=== PATIENT | female | born 1945 | race Hispanic/Latino ===

== ENCOUNTER 2016-08-16 08:07 | Outpatient (CLI) | payer MEDICARE ==
--- NOTE | 2016-08-16 13:48 | Mammography Report ---
BILATERAL DIGITAL SCREENING MAMMOGRAM with CAD : 08/16/16 08:07:00 CLINICAL: Routine screening.Previous benign left biopsy. COMPARISON:08/14/15 FINDINGS: The breasts are heterogeneously dense, which may obscure small masses.Left outer biopsy clip. Right benign calcifications. And a left subareolar biopsy clip. No mass, architectural distortion or suspicious calcifications. IMPRESSION: No mammographic evidence of malignancy. BI-RADS CATEGORY: 2 -- Benign RECOMMENDATION: Routine mammographic screening in one year. COMMENT: Patient follow-up letters are generated by our [employer] application.
== END 2016-08-16 08:08 | disposition home or self-care (01) ==
LOC: SPVWC 08:07
PROVIDERS: ATTEND Internal Medicine
DX: Z12.31 Encounter for screening mammogram for malignant neoplasm of breast (principal)
CPT/HCPCS: 77067; G0202

== ENCOUNTER 2017-09-02 09:32 | Outpatient (CLI) | payer MEDICARE ==
--- NOTE | 2017-09-03 14:04 | Mammography Report ---
BILATERAL DIGITAL SCREENING MAMMOGRAM with CAD : 09/02/17 09:32:00 CLINICAL: Routine screening. COMPARISON:08/16/16 FINDINGS: The breasts are heterogeneously dense, which may obscure small masses.Left outer biopsy clips. A few bilateral benign calcifications. A right asymmetry on the CC view requires additional imaging. No architectural distortion or suspicious calcifications. IMPRESSION: Right asymmetry requiring additional imaging. BI-RADS CATEGORY: 0--Needs Additional Imaging RECOMMENDATION: Recall for right lateralmedial and spot magnification CC views and right breast ultrasound if needed. COMMENT: Patient follow-up letters are generated by our [employer] application.
== END 2017-09-02 09:33 | disposition home or self-care (01) ==
LOC: SPVWC 09:32
PROVIDERS: ATTEND Internal Medicine
DX: Z12.31 Encounter for screening mammogram for malignant neoplasm of breast (principal)
CPT/HCPCS: 77067

== ENCOUNTER 2017-09-26 08:28 | Outpatient (CLI) | payer MEDICARE ==
--- NOTE | 2017-09-26 09:06 | Mammography Report ---
Right mammogram: Call back for right asymmetry. Additional CC and lateral compression imaging fails to confirm the persistence of the previously identified asymmetry on the screening examination of September 02, 2017. The overall breast pattern is unchanged from prior examination of July 2016. Impression: Stable right breast pattern. Recommendation: Annual mammogram followup. BI-RADS CATEGORY: 1 = Negative ACR BI-RADS MAMMOGRAPHIC CODES: 0 = Needs additional imaging evaluation; 1 = Negative; 2 = Benign; 3 = Probably benign; 4 = Suspicious; 5 = Malignant; 6 = Known biopsy-proven malignancy COMMENT: 1. Dense breast tissue, i.e., adenosis, fibrocystic changes, etc., may obscure an underlying neoplasm. 2. Approximately 10% of cancers are not detected with mammography. 3. A negative mammography report should not delay biopsy if a clinically suspicious mass is present.
== END 2017-09-26 08:29 | disposition home or self-care (01) ==
LOC: SPVWC 08:28
PROVIDERS: ATTEND Internal Medicine
DX: R92.8 Other abnormal and inconclusive findings on diagnostic imaging of breast (principal)